=== PATIENT | female | born 1970 ===

== ENCOUNTER 2023-04-01 05:58 | Day surgery (SDC) | payer OTHER ==
[2023-03-24 09:00] LABS: HEMATOCRIT 38.3 % (36.0-45.00); HEMOGLOBIN 12.9 g/dL (12.0-15.00); MEAN CELL VOLUME 89.2 fL (80.00-100.00); MEAN CORPUSCULAR HEMOGLOBIN 30.1 pg (27.00-32.0); MEAN CORPUSCULAR HGB CONC 33.7 g/dl (32.0-36.0); PLATELET COUNT 232 K/uL (150-450); RED BLOOD COUNT 4.29 M/uL (4.00-6.00); RED CELL DISTRIBUTION WIDTH 13.5 % (11.5-14.5)
[2023-03-24 09:02] LABS: PH,URINE 5.5 (5.0-8.0); URINE APPEARANCE Cloudy; URINE BILIRRUBIN Negative (NEGATIVE); URINE BLOOD Trace; URINE COLOR Yellow; URINE GLUCOSE Negative (NEGATIVE); URINE LEUKOCYTE Trace; URINE NITRATE Negative; URINE PROTEIN Negative (NEGATIVE); URINE UROBILINOGEN 0.2 E.U./dl
[2023-03-24 09:09] LABS: URINE BACTERIA 9143.4 uL (0.0-1933); URINE EPITHELIAL CELLS 33.2 uL (0.0-38.8); URINE RBC 15.6 uL (0.0-20.8); URINE WBC 45.7 uL (0.0-23.2)
[2023-03-24 09:21] LABS: PARTIAL THROMBOPLASTIN TIME 31.3 SECONDS (22.0-34.0); PROTHROMBIN TIME 10.5 SECONDS (9.0-11.5)
[2023-03-24 09:27] LABS: ALBUMIN 3.7 gm/dL (3.4-5.0); BILIRUBIN TOTAL 0.72 mg/dL (0.3-1.2); CALCIUM 8.6 mg/dL (8.5-10.1); CREATININE SERUM 0.68 mg/dL (0.55-1.02); GFR 90.86; GLOBULINA 3.3 G/DL (2.4-3.5); POTASSIUM 4.08 mEq/L (3.5-5.1)
[~2023-04-01] VITALS: Ht 157.5 cm; Wt 67.1 kg
[~2023-04-01 05:58] MED LIST: COZAAR100 MG PO
[2023-04-01] MEDS ORDERED: OXYC1TAB9 PO (10:23)
== END 2023-04-01 15:50 | disposition home or self-care (01) ==
LOC: CIR.AMB 05:58
PROVIDERS: ATTEND Surgery
DX: K64.2 Third degree hemorrhoids (principal); K62.89 Other specified diseases of anus and rectum; I10 Essential (primary) hypertension; Z20.822 Contact with and (suspected) exposure to COVID-19; K64.8 Other hemorrhoids